=== PATIENT | male | born 1965 | race Caucasian/White ===

== ENCOUNTER 2017-01-28 18:00 | Inpatient (IN) | payer MEDICAID ==
[~2017-01-28] VITALS: Ht 182.9 cm; Wt 79.8 kg
[2017-01-28] MEDS ORDERED: SODIUM CHLORIDE 0.9% 1000ML BAG (SEPSIS BOLUS) IV ONE (18:30)
[2017-01-28] MEDS ORDERED: LEVOFLOXACIN 750MG PREMIX 150 ML IV ONE (18:30)
[2017-01-28] MEDS ORDERED: ACETAMINOPHEN 325MG TABLET PO ONE (18:30)
[2017-01-28 19:52] LABS: HEMATOCRIT. 28.3 % (42.0-52.0); HEMOGLOBIN. 9.9 g/dL (14.0-18.0); MEAN CORPUSCULAR HEMOGLOBIN 38.5 pg (28.0-32.0); MEAN CORPUSCULAR VOLUME 109.6 fL (80.0-94.0); RED BLOOD CELL COUNT 2.58 mill/uL (4.7-6.1); RED CELL DISTRIBUTION WIDTH 16.3 % (11.6-14.6)
[2017-01-28 19:57] LABS: INR 2.3; PROTHROMBIN TIME 23.9 sec (9.4-11.6)
[2017-01-28 20:05] LABS: CARBON DIOXIDE 22 mEq/L (21-32); CHLORIDE 112 mEq/L (98-107); ETHANOL BLOOD < 10 mg/dL; TROPONIN I < 0.02 ng/mL (0.00-0.04)
[2017-01-28 20:09] LABS: AMMONIA 66 uMol/L (<32)
[2017-01-28 20:10] LABS: NUCLEATED RED BLOOD CELLS 1 /100 WBC
[2017-01-28 20:12] LABS: PLATELET ESTIMATE DECREASED
[2017-01-28] MEDS ORDERED: ASPIRIN 300MG SUPP PR ONE (20:15)
[2017-01-28 20:17] LABS: MEAN PLATELET VOLUME 9.4 fl (7.4-10.4); PLATELET 60 x1000/uL (130-400)
[2017-01-28] MEDS ORDERED: LACTULOSE 20G/30ML UDC PO ONE (20:30)
[2017-01-28 20:59] LABS: CLARITY URINE CLEAR (CLEAR); COLOR URINE DARK YELLOW (YELLOW); GLUCOSE URINE NEGATIVE (NEGATIVE); KETONES URINE NEGATIVE (NEGATIVE); LEUKOCYTE ESTERASE URINE 1+ (NEGATIVE); NITRITE URINE POSITIVE (NEGATIVE); OCCULT BLOOD URINE 2+ (NEGATIVE); PROTEIN URINE NEGATIVE (NEGATIVE); SPECIFIC GRAVITY URINE 1.017 (1.005-1.030)
[2017-01-28 21:13] LABS: *AMPHETAMINES SCREEN URINE NEGATIVE (NEGATIVE); *BARBITURATES SCREEN URINE NEGATIVE (NEGATIVE); *BENZODIAZEPINES SCREEN URINE NEGATIVE (NEGATIVE); *COCAINE SCREEN URINE NEGATIVE (NEGATIVE); CANNABINOID URINE SCREEN NEGATIVE (NEGATIVE); METHADONE URINE SCREEN NEGATIVE (NEGATIVE); OPIATES URINE SCREEN NEGATIVE (NEGATIVE); PHENCYCLIDINE URINE SCREEN NEGATIVE (NEGATIVE)
[2017-01-28] MEDS ORDERED: LORAZEPAM 0.5MG TABLET PO PRN (21:27)
[2017-01-28] MEDS ORDERED: MORPHINE SULFATE 2 MG/ML CPJ (NOT FOR IM USE) IV PRN (21:28)
[2017-01-28] MEDS ORDERED: GUAIFENESIN 200MG/10ML SUGAR FREE UDC PO PRN (21:30)
[2017-01-28] MEDS ORDERED: MAGNESIUM/ALUMINUM HYDROXIDE/SIMETHICONE 30ML UDC PO PRN (21:30)
[2017-01-28] MEDS ORDERED: IPRATROPIUM/ALBUTEROL 0.5-3(2.5)MG/3ML NEB INH PRN (21:30)
[2017-01-28] MEDS ORDERED: DOCUSATE SODIUM 100MG CAPSULE PO PRN (21:30)
[2017-01-28] MEDS ORDERED: ONDANSETRON HCL 4MG/2ML VIAL IV PRN (21:30)
[2017-01-28] MEDS ORDERED: HYDROCODONE/ACETAMINOPHEN 10/325MG TABLET PO PRN (21:30)
[2017-01-28] MEDS ORDERED: ACETAMINOPHEN 325MG TABLET PO PRN (21:30)
[2017-01-28] MEDS ORDERED: CLONIDINE 0.1MG TABLET PO PRN (21:30)
[2017-01-28] MEDS ORDERED: DIPHENHYDRAMINE 50MG/ML VIAL IV PRN (21:30)
[2017-01-28] MEDS ORDERED: NA PHOS,M-B/NA PHOS,DI-BA ENEMA 118ML PR PRN (22:00)
[2017-01-28] MEDS ORDERED: LACTULOSE 20G/30ML UDC PO SCH (22:00)
[2017-01-28 22:42] LABS: CHLORIDE 115 mEq/L (98-107)
[2017-01-28 22:45] LABS: CARBON DIOXIDE 23 mEq/L (21-32)
[2017-01-28 22:49] LABS: TROPONIN I < 0.02 ng/mL (0.00-0.04)
[2017-01-28 23:30] VITALS: BP 132/58
[2017-01-29] VITALS: BP 124/69
[2017-01-29] MEDS ORDERED: DEXT 5%/0.45% NACL KCL 10MEQ/L 1,000 ML IV SCH (01:00)
[2017-01-29 04:00] VITALS: BP 119/63
[2017-01-29] MEDS: LACTULOSE 20G/30ML UDC PO SCH ×3 (06:20→22:20)
[2017-01-29 07:06] LABS: HEMATOCRIT. 24.9 % (42.0-52.0); HEMOGLOBIN. 8.8 g/dL (14.0-18.0); MEAN CORPUSCULAR HEMOGLOBIN 38.5 pg (28.0-32.0); MEAN CORPUSCULAR VOLUME 109.2 fL (80.0-94.0); MEAN PLATELET VOLUME 8.8 fl (7.4-10.4); PLATELET 51 x1000/uL (130-400); RED BLOOD CELL COUNT 2.28 mill/uL (4.7-6.1); RED CELL DISTRIBUTION WIDTH 16.3 % (11.6-14.6)
[2017-01-29 07:59] LABS: CHLORIDE 115 mEq/L (98-107)
[2017-01-29 08:08] VITALS: BP 135/54
[2017-01-29 08:18] LABS: CARBON DIOXIDE 24 mEq/L (21-32); HDL CHOLESTEROL 68 mg/dL (40-59); LDL CHOLESTEROL 59 mg/dL (5-100); T4 FREE 1.05 ng/dL (0.76-1.46); TROPONIN I < 0.02 ng/mL (0.00-0.04)
[2017-01-29] MEDS ORDERED: ENOXAPARIN 40MG/0.4ML SYR SUBCUT SCH (09:00)
[2017-01-29 10:32] LABS: AMMONIA 98 uMol/L (<32)
[2017-01-29 12:09] VITALS: BP 132/67
[2017-01-29 13:24] LABS: TOTAL IRON BINDING CAPACITY 157 ug/dL (250-450)
[2017-01-29] MEDS ORDERED: PHYTONADIONE 10MG/ML AMP SUBCUT SCH (13:30)
[2017-01-29 13:49] LABS: FOLIC ACID (FOLATE) SERUM 13.7 ng/mL (>5.38)
[2017-01-29 13:50] LABS: HEPATITIS B SURFACE ANTIGEN NEGATIVE
[2017-01-29 14:18] LABS: HEPATITIS B CORE AB IGM NEGATIVE
[2017-01-29 14:20] LABS: HEPATITIS A AB IGM NEGATIVE (NEGATIVE)
[2017-01-29] MEDS: DEXT 5%/0.45% NACL KCL 10MEQ/L 1,000 ML IV SCH (15:33)
[2017-01-29] MEDS: RIFAXIMIN 550 MG TABLET PO SCH ×2 (15:33→22:19)
[2017-01-29 16:43] VITALS: BP 135/67
[2017-01-29 20:00] VITALS: BP 129/56
[2017-01-30] VITALS: BP 136/50
[2017-01-30 04:00] VITALS: BP 130/52
[2017-01-30 06:43] LABS: PARTIAL THROMBOPLASTIN TIME 45.8 sec (23.4-31.0)
[2017-01-30 06:52] LABS: PROTHROMBIN TIME 42.2 sec (9.4-11.6)
[2017-01-30 06:53] LABS: AMMONIA 74 uMol/L (<32)
[2017-01-30] MEDS: DEXT 5%/0.45% NACL KCL 10MEQ/L 1,000 ML IV SCH (06:55)
[2017-01-30] MEDS: LACTULOSE 20G/30ML UDC PO SCH (06:55)
[2017-01-30 07:08] LABS: BASOPHILS % 0.5 % (0.0-2.0); EOSINOPHILS % 5.7 % (0.0-5.0); HEMATOCRIT. 23.1 % (42.0-52.0); HEMOGLOBIN. 8.1 g/dL (14.0-18.0); LYMPHOCYTES % 8.2 % (20.0-50.0); MEAN CORPUSCULAR HEMOGLOBIN 38.1 pg (28.0-32.0); MEAN PLATELET VOLUME 9.1 fl (7.4-10.4); MONOCYTES % 9.7 % (2.0-8.0); NEUTROPHILS % 75.9 % (40.0-76.0); PLATELET 55 x1000/uL (130-400); RED BLOOD CELL COUNT 2.12 mill/uL (4.7-6.1); RED CELL DISTRIBUTION WIDTH 16.2 % (11.6-14.6)
[2017-01-30 07:12] LABS: INR 4.1
[2017-01-30 07:18] LABS: CHLORIDE 114 mEq/L (98-107)
[2017-01-30 07:49] LABS: CARBON DIOXIDE 22 mEq/L (21-32)
[2017-01-30] MEDS ORDERED: POTASSIUM CHLORIDE 20MEQ TABLET SR PO SCH (08:30)
[2017-01-30] MEDS: RIFAXIMIN 550 MG TABLET PO SCH (09:06)
[2017-01-30 09:11] VITALS: BP 107/44
[2017-01-30] MEDS ORDERED: DIATR MEGLU/DIATRIZOATE SOLN 30ML PO NR (11:30)
[2017-01-30 14:22] VITALS: BP 138/65
[2017-01-31 12:02] LABS: PLATELET ESTIMATE DECREASED
== END 2017-01-30 15:45 | disposition home or self-care (01) | DRG 279 ==
LOC: ER 18:24 → EDBEDREQ 18:33 → EDBD 20:52 → 6WST 20:52 → EDBEDREQ 20:59 → EDBEDREQTM 20:59 → ENRESERV 21:14
PROVIDERS: ADMIT Internal Medicine; ATTEND Internal Medicine
DX: K72.00 Acute and subacute hepatic failure without coma (principal); G93.41 Metabolic encephalopathy; E72.20 Disorder of urea cycle metabolism, unspecified; E87.2 Acidosis; K74.60 Unspecified cirrhosis of liver; E88.09 Other disorders of plasma-protein metabolism, not elsewhere classified; N39.0 Urinary tract infection, site not specified; E86.0 Dehydration; D53.9 Nutritional anemia, unspecified
CPT/HCPCS: 36415; 70450; 71010; 76700; 80048; 80053; 80061; 80076; 80305; 81001; 82105; 82140; 82248; 82607; 82728; 82746; 82962; 83540; 83550; 83605; 83690; 83880; 84439; 84443; 84484; 85025; 85610; 85730; 86705; 86709; 86803; 86850; 86900; 87040; 87086; 87340; 93005; A6261; G0482; J1956; J3430; J7030; A4315

== ENCOUNTER 2017-09-27 16:30 | Inpatient (IN) | payer MEDICAID ==
[~2017-09-27] VITALS: Ht 167.6 cm; Wt 68.0 kg
[~2017-09-27 16:30] MED LIST: FOLI-43 PO; LACT10SO6 MT; LEVO500T89 PO; MULT-1146 MT; SPIR25TA6 PO; THIA100T72 MT
[2017-09-27 18:41] LABS: CHLORIDE 116 mEq/L (98-107)
[2017-09-27 18:43] LABS: BASOPHILS % 0.8 % (0.0-2.0); EOSINOPHILS % 1.6 % (0.0-5.0); HEMATOCRIT. 26.7 % (42.0-52.0); HEMOGLOBIN. 9.5 g/dL (14.0-18.0); LYMPHOCYTES % 11.7 % (20.0-50.0); MEAN CORPUSCULAR HEMOGLOBIN 38.2 pg (28.0-32.0); MEAN CORPUSCULAR VOLUME 107.6 fL (80.0-94.0); MONOCYTES % 14.9 % (2.0-8.0); RED BLOOD CELL COUNT 2.49 mill/uL (4.7-6.1); RED CELL DISTRIBUTION WIDTH 21.5 % (11.6-14.6)
[2017-09-27 18:45] LABS: ETHANOL BLOOD 190 mg/dL; INR 1.8
[2017-09-27 18:59] LABS: MEAN PLATELET VOLUME 8.2 fl (7.4-10.4); PLATELET 78 x1000/uL (130-400)
[2017-09-27] MEDS ORDERED: LEVOFLOXACIN 750MG PREMIX 150 ML IV ONE (20:15)
[2017-09-27] MEDS ORDERED: SODIUM CHLORIDE 0.9% 1000ML BAG (SEPSIS BOLUS) IV ONE (20:15)
[2017-09-28] VITALS (7 sets, daily range): BP systolic 119–160; BP diastolic 66–75
[2017-09-28] MEDS ORDERED: IPRATROPIUM/ALBUTEROL 0.5-3(2.5)MG/3ML NEB HHN PRN (11:15)
[2017-09-28] MEDS ORDERED: HYDROCODONE/ACETAMINOPHEN 5/325MG TABLET PO PRN (12:30)
[2017-09-28] MEDS ORDERED: ACETAMINOPHEN 325MG TABLET PO PRN (12:30)
[2017-09-28] MEDS ORDERED: ONDANSETRON HCL 4MG/2ML VIAL IV PRN (12:30)
[2017-09-28] MEDS ORDERED: CLONIDINE 0.1MG TABLET PO PRN (12:30)
[2017-09-28] MEDS: IPRATROPIUM/ALBUTEROL 0.5-3(2.5)MG/3ML NEB INH SCH ×2 (16:26→21:00)
[2017-09-28] MEDS: LEVOFLOXACIN 500MG PREMIX 100 ML IV SCH (22:17)
[2017-09-28] MEDS: NICOTINE 14MG PATCH TD SCH (22:19)
[2017-09-29] VITALS: BP 125/73
[2017-09-29 04:00] VITALS: BP 154/85
[2017-09-29] MEDS: IPRATROPIUM/ALBUTEROL 0.5-3(2.5)MG/3ML NEB INH SCH ×5 (05:15→21:38)
[2017-09-29 07:12] LABS: MEAN CORPUSCULAR HEMOGLOBIN 38.2 pg (28.0-32.0); MEAN CORPUSCULAR VOLUME 107.9 fL (80.0-94.0); MEAN PLATELET VOLUME 8.3 fl (7.4-10.4); RED BLOOD CELL COUNT 1.83 mill/uL (4.7-6.1)
[2017-09-29 07:58] LABS: HEMATOCRIT. 19.8 % (42.0-52.0)
[2017-09-29 08:00] VITALS: BP 137/80
[2017-09-29] MEDS: NICOTINE 14MG PATCH TD SCH (09:27)
[2017-09-29 12:01] VITALS: BP 142/81
[2017-09-29 12:05] LABS: CHLORIDE 114 mEq/L (98-107)
[2017-09-29 12:23] LABS: LDL CHOLESTEROL 38 mg/dL (5-100)
[2017-09-29 12:24] LABS: HDL CHOLESTEROL 70 mg/dL (40-59)
[2017-09-29] MEDS ORDERED: POTASSIUM CHLORIDE 20MEQ/PACKET PO NR (13:00)
[2017-09-29] MEDS ORDERED: POTASSIUM CHLORIDE 20MEQ/PACKET PO SCH (13:00)
[2017-09-29 14:27] LABS: PLATELET ESTIMATE DECREASED
[2017-09-29 14:29] LABS: PLATELET 53 x1000/uL (130-400)
[2017-09-29 16:01] VITALS: BP 147/79
[2017-09-29 20:00] VITALS: BP 143/80
[2017-09-29] MEDS: LEVOFLOXACIN 500MG PREMIX 100 ML IV SCH (21:27)
[2017-09-30] VITALS (11 sets, daily range): BP systolic 126–143; BP diastolic 55–74
[2017-09-30] MEDS: IPRATROPIUM/ALBUTEROL 0.5-3(2.5)MG/3ML NEB INH SCH ×5 (01:25→20:47)
[2017-09-30] MEDS: NICOTINE 14MG PATCH TD SCH (09:19)
[2017-09-30 11:10] LABS: BASOPHILS % 0.5 % (0.0-2.0); CHLORIDE 114 mEq/L (98-107); EOSINOPHILS % 2.3 % (0.0-5.0); LYMPHOCYTES % 10.1 % (20.0-50.0); MEAN CORPUSCULAR HEMOGLOBIN 38.6 pg (28.0-32.0); MEAN CORPUSCULAR VOLUME 109.7 fL (80.0-94.0); MEAN PLATELET VOLUME 7.9 fl (7.4-10.4); MONOCYTES % 14.6 % (2.0-8.0); NEUTROPHILS % 72.5 % (40.0-76.0); PLATELET 55 x1000/uL (130-400); RED CELL DISTRIBUTION WIDTH 21.1 % (11.6-14.6)
[2017-09-30 11:19] LABS: HEMOGLOBIN. 7.3 g/dL (14.0-18.0)
[2017-09-30 11:20] LABS: HEMATOCRIT. 20.8 % (42.0-52.0)
[2017-09-30] MEDS ORDERED: POTASSIUM CHLORIDE 20MEQ/PACKET PO NR (12:30)
[2017-09-30] MEDS: CHLORDIAZEPOXIDE 25MG CAPSULE PO SCH ×2 (13:29→21:37)
[2017-09-30] MEDS: LEVOFLOXACIN 500MG PREMIX 100 ML IV SCH (21:37)
[2017-10-01] VITALS: BP 135/66
[2017-10-01] MEDS: IPRATROPIUM/ALBUTEROL 0.5-3(2.5)MG/3ML NEB INH SCH ×4 (00:42→12:29)
[2017-10-01 04:00] VITALS: BP 103/50
[2017-10-01 06:33] LABS: BASOPHILS % 0.4 % (0.0-2.0); EOSINOPHILS % 3.2 % (0.0-5.0); HEMATOCRIT. 21.5 % (42.0-52.0); HEMOGLOBIN. 7.4 g/dL (14.0-18.0); LYMPHOCYTES % 10.7 % (20.0-50.0); MEAN CORPUSCULAR HEMOGLOBIN 37.3 pg (28.0-32.0); MEAN CORPUSCULAR VOLUME 108.3 fL (80.0-94.0); MEAN PLATELET VOLUME 8.2 fl (7.4-10.4); MONOCYTES % 12.8 % (2.0-8.0); NEUTROPHILS % 72.9 % (40.0-76.0); RED BLOOD CELL COUNT 1.98 mill/uL (4.7-6.1); RED CELL DISTRIBUTION WIDTH 22.3 % (11.6-14.6)
[2017-10-01 07:42] LABS: CHLORIDE 110 mEq/L (98-107)
[2017-10-01 08:00] VITALS: BP 122/75
[2017-10-01 09:27] LABS: PLATELET 49 x1000/uL (130-400)
[2017-10-01] MEDS: NICOTINE 14MG PATCH TD SCH (09:28)
[2017-10-01] MEDS: CHLORDIAZEPOXIDE 25MG CAPSULE PO SCH ×2 (09:28→13:52)
[2017-10-01 12:00] VITALS: BP 153/71
[2017-10-01 13:28] VITALS: BP 153/71
== END 2017-10-01 14:08 | disposition home or self-care (01) | DRG 48 ==
LOC: ER 17:13 → EDBEDREQTM 20:48 → EDBEDREQ 20:48 → 7WST 21:38 → EDBEDREQ 21:54 → EDBEDREQTM 21:54 → ENRESERV 09-28 04:13
PROVIDERS: ADMIT Internal Medicine; ATTEND Internal Medicine
PROC: 30233N1 Transfusion of Nonautologous Red Blood Cells into Peripheral Vein, Percutaneous Approach (ICD-10-PCS; principal; 2017-09-30)
DX: G90.8 Other disorders of autonomic nervous system (principal); G93.40 Encephalopathy, unspecified; J18.9 Pneumonia, unspecified organism; J90 Pleural effusion, not elsewhere classified; E44.0 Moderate protein-calorie malnutrition; D68.4 Acquired coagulation factor deficiency; E87.2 Acidosis; K70.31 Alcoholic cirrhosis of liver with ascites; D64.9 Anemia, unspecified; Y90.6 Blood alcohol level of 120-199 mg/100 ml; F17.210 Nicotine dependence, cigarettes, uncomplicated; R25.1 Tremor, unspecified; Z68.24 Body mass index [BMI] 24.0-24.9, adult; Z79.899 Other long term (current) drug therapy; Z91.81 History of falling; Z71.6 Tobacco abuse counseling
CPT/HCPCS: 36415; 71045; 80048; 80053; 80061; 82270; 83605; 84484; 85025; 85610; 86850; 86900; 86920; 87040; 93005; 96361; 96365; 96366; 99291; A6261; G0482; J1956; J2405; J7030; J7050; J7620; P9016